=== PATIENT | male | born 1995 | race Caucasian/White ===

== ENCOUNTER 2019-03-21 13:54 | Emergency (ER) | payer SELFPAY ==
[2019-03-21 14:07] VITALS: BP 122/87; PULSE 83; TEMP 98.6; BMI 22.9
--- NOTE | 2019-03-21 14:16 | PDOC ---
History of Present Illness <Cynthia Tse - Last Filed: 03/21/19 16:06> - History of Present Illness Initial Comments: 03/21/19 14:42 23 y/o M with no significant pmhx presenting to the ED with 2 hrs of left sided chest pain radiating to his shoulder. Describes the pain as throbbing intermittent pain with episodes lasting approx. 2 mins. Pain happens both at rest and exertion and is worst at rest and is 6/10 in severity. He denies having any cough, SOB, pleuritic chest pain, hemoptysis, trauma to the area, fevers, chills, diaphoresis, recent drug use (cocaine) or previous episode of chest pain in the past. 03/21/19 14:45 <Bigg Austin - Last Filed: 03/21/19 16:09> - General Chief Complaint: Chest Pain Stated Complaint: CHEST PAIN Time Seen by Provider: 03/21/19 14:15 Past History <Cynthia Tse - Last Filed: 03/21/19 16:06> - Past Medical History COPD: No - Suicide/Smoking/Psychosocial Hx Smoking History: Never smoked <Bigg Austin - Last Filed: 03/21/19 16:09> - Past Medical History Allergies/Adverse Reactions: Allergies Allergy/AdvReac Type Severity Reaction Status Date / Time No Known Allergies Allergy Verified 03/21/19 14:03 *Physical Exam - Vital Signs Last Vital Signs Temp Pulse Resp BP Pulse Ox 98.6 F 83 18 122/87 99 03/21/19 14:05 03/21/19 14:05 03/21/19 14:05 03/21/19 14:05 03/21/19 14:05 <Cynthia Tse - Last Filed: 03/21/19 16:06> - Vital Signs Last Vital Signs Temp Pulse Resp BP Pulse Ox 98.6 F 83 18 122/87 99 03/21/19 14:05 03/21/19 14:05 03/21/19 14:05 03/21/19 14:05 03/21/19 14:05 <Bigg Austin - Last Filed: 03/21/19 16:09> ED Treatment Course - LABORATORY CBC & Chemistry Diagram: 03/21/19 14:46 03/21/19 14:46 - ADDITIONAL ORDERS Additional order review: Laboratory Results 03/21/19 14:46 Sodium 141 Potassium 4.0 Chloride 106 Carbon Dioxide 30 Anion Gap 5 L BUN 10.4 Creatinine 1.0 Est GFR (CKD-EPI)AfAm 121.55 Est GFR (CKD-EPI)NonAf 104.88 Random Glucose 94 Calcium 9.2 Total Bilirubin 0.7 AST 9 L ALT 16 Alkaline Phosphatase 68 Creatine Kinase 78 Troponin I < 0.02 Total Protein 7.4 Albumin 4.2 03/21/19 14:46 RBC 4.64 MCV 90.1 MCHC 35.1 RDW 13.0 MPV 7.8 Neutrophils % 53.1 Lymphocytes % 36.3 Monocytes % 9.4 Eosinophils % 0.7 Basophils % 0.5 <Cynthia Tse - Last Filed: 03/21/19 16:06> - LABORATORY CBC & Chemistry Diagram: 03/21/19 14:46 03/21/19 14:46 <Bigg Austin - Last Filed: 03/21/19 16:09> Medical Decision Making - Medical Decision Making 03/21/19 15:33 23 y/o M with no significant hx presenting with chest pain of 2 hrs duration. Labs/Imaging/Meds - CXR, cardiac profile, cbc,cmp, ekg -EkG: Normal sinus rhythm with sinus arrhythmia with rightward axis deviation. No T wave inversion or ST elevation. -No acute chest pathology on CXR -Heart score <Bigg Austin - Last Filed: 03/21/19 16:09> *DC/Admit/Observation/Transfer - Discharge Dispostion Decision to Admit order: No <Cynthia Tse - Last Filed: 03/21/19 16:06> <Bigg Austin - Last Filed: 03/21/19 16:09> Diagnosis at time of Disposition: Chest pain Qualifiers: Chest pain type: unspecified Qualified Code(s): R07.9 - Chest pain, unspecified - Referrals Referrals: Nadya Nur MD [Primary Care Provider] - Dev Boyer MD [Staff Physician] - - Patient Instructions Printed Discharge Instructions: DI for Chest Pain Additional Instructions: You were seen in the ED for chest pain. All your labs, chest x-ray and ekg were negative. You have also been given 600 mg of Motrin for pain. Follow up with you PCP on Friday Dr. Nadya Nur. 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 Return to the ER if you develop worsening chest pain, shortness of breath, or chest pain when breathing. Rest and hydrate as needed. - Post Discharge Activity Forms/Work/School Notes: Back to Work
[2019-03-21 15:02] LABS: BASO % 0.5 % (0-2.0); EOS % 0.7 % (0-4.5); HEMATOCRIT 41.8 % (35.4-49); HEMOGLOBIN 14.7 GM/dL (11.7-16.9); LYMPH % 36.3 % (8-40); MCH 31.6 pg (25.7-33.7); MCHC 35.1 g/dl (32.0-35.9); MEAN CELL VOLUME 90.1 fl (80-96); MEAN PLT VOLUME 7.8 fl (7.5-11.1); MONO % 9.4 % (3.8-10.2); NEUT % 53.1 % (42.8-82.8); PLATELET COUNT 241 K/MM3 (134-434); RBC 4.64 M/mm3 (4.00-5.60); WHITE BLOOD COUNT 5.7 K/mm3 (4.0-10.0)
[2019-03-21 15:21] LABS: ALBUMIN 4.2 g/dl (3.4-5.0); ALK PHOS 68 U/L (45-117); ANION GAP 5 MMOL/L (8-16); BILIRUBIN,TOTAL 0.7 mg/dL (0.2-1); BLOOD UREA NITROGEN 10.4 mg/dL (7-18); CALCIUM 9.2 mg/dL (8.5-10.1); CHLORIDE 106 mmol/L (98-107); CO2 30 mmol/L (21-32); GLUCOSE,RANDOM 94 mg/dL (74-106); SGOT/AST 9 U/L (15-37); SGPT/ALT 16 U/L (13-61); SODIUM 141 mmol/L (136-145); TOT PROT 7.4 g/dl (6.4-8.2)
--- NOTE | 2019-03-21 15:56 | PDOC ---
Documentation entered by Catherine Philip SCRIBE, acting as scribe for Cynthia Tse DO. Cynthia Tse DO: This documentation has been prepared by the Cedrick dial Mackenzie, SCRIBE, under my direction and personally reviewed by me in its entirety. I confirm that the documentation accurately reflects all work , treatment, procedures, and medical decision making performed by me. Attending Attestation - Resident Resident Name: Bigg Austin - ED Attending Attestation I have performed the following: I have examined & evaluated the patient, The case was reviewed & discussed with the resident, I agree w/resident's findings & plan - HPI HPI: The patient is a 23 year old male, with no significant PMH who presents to the emergency department with 2 hours of sharp intermittent left sided chest pain radiating to his left shoulder. Patient states the pain came on suddenly and throbs intermittently every few minutes. Pain is random and not aggravated by exertion or alleviated at rest. Patient denies any recent cough. Patient denies having any similar episodes in the past but endorses a habit of dislocating his left shoulder which he has never had surgery on. The patient denies shortness of breath, headache and dizziness. Denies fever, chills, nausea, vomiting, diarrhea and constipation. Denies dysuria, frequency, urgency and hematuria. Allergies: NKA Social history: Endorses smoking a Juul Family history: History of cardiac disease, unable to specify genetically. PCP: Dr. Nadya Nur 03/21/19 16:02 - Physicial Exam PE: Constitutional: Awake, alert, oriented. No acute distress. Head: Normocephalic. Atraumatic Eyes: PERRL. EOMI. Conjunctivae are not pale. ENT: Mucous membranes are moist and intact. Posterior pharynx without exudates or erythema. Uvula midline. Neck: Supple. Full ROM. No lymphadenopathy. Cardiovascular: Regular rate. Regular rhythm. S1, S2 regular. Distal pulses are 2+ and symmetric. Pulmonary/Chest: No evidence of respiratory distress. Clear to auscultation bilaterally No wheezing, rales or rhonchi. Abdominal: Soft and non-distended. There is no tenderness. No rebound, guarding or rigidity. No organomegaly. No palpable masses. Good bowel sounds. Back: No CVA tenderness. Musculoskeletal: No edema. No cyanosis. No clubbing. Full range of motion in all extremities. Nocalf tenderness. Radial/pedal pulses are intact and 2+ bilaterally Skin: Skin is warm and dry. No petechiae. No purpura. Neurological: Alert and oriented to person, place, and time. Cranial nerves II -XII are grossly intact. Normal speech. Strength is grossly symmetric. No sensory deficits. Psychiatric: Good eye contact. Normal interaction, affect and behavior. 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
[2019-03-21] MEDS ORDERED: IBUPROFEN 600 MG TABLET (FP) PO ONE ×2 (15:59→16:37)
--- NOTE | 2019-03-21 20:57 | EKG ---
Test Reason : Blood Pressure : / mmHG Vent. Rate : 076 BPM Atrial Rate : 076 BPM P-R Int : 164 ms QRS Dur : 086 ms QT Int : 336 ms P-R-T Axes : 077 097 061 degrees QTc Int : 378 ms POOR DATA QUALITY, INTERPRETATION MAY BE ADVERSELY AFFECTED NORMAL SINUS RHYTHM WITH SINUS ARRHYTHMIA RIGHTWARD AXIS BORDERLINE ECG NO PREVIOUS ECGS AVAILABLE Confirmed by JOSEFINA HASTINGS MD ([id number]) on 03/21/2019 8:57:18 PM Referred By: Confirmed By:JOSEFINA HASTINGS MD
== END 2019-03-21 16:39 | disposition home or self-care (01) ==
LOC: JER 13:54
DX: R07.9 Chest pain, unspecified (principal)
CPT/HCPCS: 36415; 71045-TC-FY; 80053; 82550; 84484; 85025; 93005; 93010; 99282-25